=== PATIENT | female | born 1985 | race Caucasian/White ===

== ENCOUNTER → 2020-05-24 14:33 | Outpatient (BNVA) | payer OTHER, SELFPAY | PROVIDERS: Family Provider Family Medicine; PCP Family Medicine; Visit Provider Nurse Practitioner | DX: M25.571 Pain in right ankle and joints of right foot (principal) | CPT/HCPCS: 73630 ==

== ENCOUNTER → 2020-10-07 18:53 | Outpatient (BNVA) | payer SELFPAY | PROVIDERS: Family Provider Family Medicine; PCP Family Medicine | DX: R21 Rash and other nonspecific skin eruption (principal); Z68.22 Body mass index [BMI] 22.0-22.9, adult; F17.290 Nicotine dependence, other tobacco product, uncomplicated | CPT/HCPCS: 86618; 86666; 86757 ==

== ENCOUNTER → 2021-06-08 11:07 | Outpatient (BNVA) | payer OTHER, SELFPAY | PROVIDERS: Family Provider Family Medicine; PCP Family Medicine; Visit Provider Nurse Practitioner Family | DX: Z20.822 Contact with and (suspected) exposure to COVID-19 (principal) | CPT/HCPCS: 87635 ==

== ENCOUNTER 2021-06-13 08:59 | Outpatient (CLI) | payer SELFPAY ==
[2021-06-13 08:59] VITALS: BMI 24.3
[2021-06-13 09:05] VITALS: BP 118/86; PULSE 91; RESP 18; TEMP 36.6; O2SAT 98
[2021-06-13 09:48] VITALS: BP 111/81; PULSE 87; RESP 18; TEMP 36.4; O2SAT 98
[2021-06-13 10:48] VITALS: BP 108/80; PULSE 90; RESP 17; TEMP 36.9; O2SAT 99
== END 2021-06-13 09:00 | disposition home or self-care (01) ==
LOC: OPS 09:06
PROVIDERS: PCP Nurse Practitioner Family; Visit Provider Nurse Practitioner Family
DX: U07.1 COVID-19 (principal)
CPT/HCPCS: 96365

== ENCOUNTER 2021-07-08 15:54 | Emergency (ER) | payer OTHER, SELFPAY ==
[2021-07-08 16:02] VITALS: BP 121/79; PULSE 113; RESP 18; TEMP 36.7; O2SAT 99; BMI 24.3
--- NOTE | 2021-07-08 16:09 | XRR_ITS ---
PROCEDURE INFORMATION: Exam: XR Lumbosacral Spine Exam date and time: 07/08/2021 4:09 PM Age: 35 years old Clinical indication: Low back pain; Patient HX: History-- bent over this afternoon, felt a pop and has had severe lower back pain ever since; Additional info: Pain, felt a pop TECHNIQUE: Imaging protocol: XR of the lumbosacral spine. Views: 2 or 3 views. COMPARISON: No relevant prior studies available. FINDINGS: Bones/joints: 5 [id number] vertebral bodies. Vertebral body height is maintained. No subluxation. Normal bone mineralization. No acute fracture. Soft tissues: No paravertebral soft tissue abnormality. No radiopaque foreign body. XR/XR lumbar spine 2-3V* [id number] IMPRESSION: No acute fracture of the lumbar spine. CT scan would be recommended if there is continuing clinical concern for fracture.
--- NOTE | 2021-07-08 16:10 | W.ED.BACK ---
HPI - Back Pain/Injury General: Chief Complaint: Back Pain/Injury Stated Complaint: low back pain Time Seen by Provider: 07/08/21 16:00 History of Present Illness: Patient states last night that she was taken ornaments off a [place] tree and she was feeling fine till she took 1 warm off and felt a pop in her low back and back started hurting. 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 Patient says she took Tylenol ibuprofen without any relief last night and just is got worse. She presents here today with low back pain that centered in her low back. She denies any sciatica or radiculopathy. MD elicited complaint: back pain Pertinent past history: prior back pain Onset (ago): hour(s) Location: lumbar spine Radiation: none Exacerbating factors: movement and walking Associated symptoms: Deny abdominal pain, chills, fever(s), nausea or vomiting Review of Systems Const: Denies: fever(s), chills or body aches Eyes: Denies: eye discomfort ENMT: Denies: throat pain Card: Denies: chest pain Resp: Denies: dyspnea GI: Denies: abdominal pain, nausea or vomiting Musc: Reports: back pain (Back started hurting after taking [place] ornaments off [place] tree [place]); Denies: extremity pain Skin/Breast: Denies: rash Neuro: Denies: headache(s) Psych: Denies: depression or suicidal ideation [facility] ED PFSH: Medical History (Updated 06/08/21 @ 10:49 by LISETTE Piper) HTN (hypertension) Social History Smoking and tobacco status: current some day smoker e-cigarettes Quit status (tobacco): not considering quitting Second hand smoke exposure: No Alcohol intake: never Desire information about alcohol rehabilitation?: No Desire information about substance/drug rehabilitation?: No Physical Exam Const: COMMON NORMALS: no acute distress, patient oriented x3 and alert HENMT: COMMON NORMALS: normocephalic and external ears normal HEAD & SCALP: normocephalic EXTERNAL EAR: Yes external ears normal Eye: COMMON NORMALS: EOMs intact bilaterally Neck/C-Spine: COMMON NORMALS: no JVD Resp: COMMON NORMALS: normal respiratory effort and No use of accessory muscles Cardio: COMMON NORMALS: no JVD GI: INSPECTION: Yes normal to inspection Back/Pelvis: LUMBAR SPINE/LOWER BACK: Yes lumbar spinal tenderness, Yes paraspinal muscle tenderness, No paraspinal muscle spasm and Yes straight leg raise negative bilaterally Extremity: COMMON NORMALS: normal to inspection and full ROM Neuro: COMMON NORMALS: patient oriented x3 SENSORIUM/ORIENTATION: Yes alert Psych: COMMON NORMALS: mental status grossly normal Course Vital Signs: Vital signs: Vital Signs Temperature 98.1 F 07/08/21 16:02 Pulse Rate 113 H 07/08/21 16:02 Respiratory Rate 18 07/08/21 16:02 Blood Pressure 121/79 07/08/21 16:02 Pulse Oximetry 99 07/08/21 16:02 MDM - Back Pain/Injury Medical Decision Making Low back pain acute on chronic. Discharge Plan Discharge Condition: Stable Prescriptions: No Action verapamil 180 mg capsule,ext rel. pellets 24 hr 180 mg PO DAILY Qty: 90 3RF hydroxyzine HCl 25 mg tablet 25 mg PO TID PRN0RF bupropion HCl [Wellbutrin SR] 150 mg tablet sustained-release 12 hr 150 mg PO BID 0RF ropinirole [Requip] 0.25 mg tablet 0.25 mg PO BID Qty: 60 0RF tramadol 50 mg tablet 100 mg PO Q6H PRN (Reason: pain) 30 Days Qty: 90 3RF estradiol 0.5 mg tablet 0.5 mg PO DAILY 23 Days Qty: 90 3RF Rx Instructions: off 5 days; repeat cycle Referrals: Figueroa,MUKESH Cramer [Primary Care Provider] - Coding Level of Care Code ED Sign Painter for Toan Jorge
[2021-07-08] MEDS: methylPREDNISolone (DEPO) 80 MG/ML INJ 1 mL IM (16:15)
[2021-07-08] MEDS: ketorolac 60 mg/2 mL INJ IM (16:15)
== END 2021-07-08 16:45 | disposition home or self-care (01) ==
PROVIDERS: Emergency Provider Nurse Practitioner Family; PCP Nurse Practitioner Family
DX: M54.50 Low back pain, unspecified (principal); G89.29 Other chronic pain; I10 Essential (primary) hypertension; F17.290 Nicotine dependence, other tobacco product, uncomplicated
CPT/HCPCS: 72100; 96372; 99283; J1040; J1885